=== PATIENT | female | born 1995 | race Caucasian/White ===

== ENCOUNTER 2018-08-02 10:12 | Emergency (ER) | payer OTHER ==
[2018-08-02 10:27] VITALS: BP 101/64
--- NOTE | 2018-08-02 10:43 | UC ---
Eye Complaint HPI - HPI Summary HPI Summary: pt was fine last night before bed, took contacts ou. This am awoke with L eye red, draining white discharge. no sight change - History of Current Complaint Chief Complaint: UCEye Stated Complaint: EYE ISSUE Time Seen by Provider: 08/02/18 10:28 Hx Obtained From: Patient Hx Last Menstrual Period: 08/02/18 ?: No Onset/Duration: Sudden Onset Timing: Constant Severity Initially: Mild Severity Currently: None Pain Intensity: 0 Aggravating Factor(s): Nothing Alleviating Factor(s): Nothing Associated Signs And Symptoms: Positive: Drainage (Purulent), Swelling. Negative: Photophobia, Vision Impairment Left - Risk Factors Penetrating Injury Risk Factor: Negative - Allergies/Home Medications Allergies/Adverse Reactions: Allergies Allergy/AdvReac Type Severity Reaction Status Date / Time No Known Allergies Allergy Verified 08/02/18 10:27 Home Medications: Home Medications Cetirizine* [ZyrTEC 10 MG TAB*] 10 mg PO DAILY 08/02/18 [History Confirmed 08/02] Norethindrone 0.35 mg PO 08/02/18 [History] PMH/Surg Hx/FS Hx/Imm Hx Previously Healthy: Yes Other History Of: Negative For: Anticoagulant Therapy - Surgical History Surgical History: Yes Surgery Procedure, Year, and Place: tendon repair 09/03 - Family History Known Family History: Positive: Cardiac Disease - Social History Occupation: Student Lives: With Family Alcohol Use: Occasionally Substance Use Type: None Smoking Status (MU): Never Smoked Tobacco Review of Systems Constitutional: Negative Skin: Negative Eyes: Drainage, Eye Redness ENT: Negative Respiratory: Negative Cardiovascular: Negative Neurological: Negative Psychological: Negative Is Patient Immunocompromised?: No All Other Systems Reviewed And Are Negative: Yes Physical Exam Triage Information Reviewed: Yes Appearance: Well-Appearing, No Pain Distress, Well-Nourished Vital Signs: Initial Vital Signs Temp 98 F 08/02/18 10:25 Pulse 69 08/02/18 10:25 Resp 16 08/02/18 10:25 BP 101/64 08/02/18 10:25 Pulse Ox 100 08/02/18 10:25 Vital Signs Reviewed: Yes Eyes: Positive: Conjunctiva Inflamed ENT Exam: Normal Respiratory Exam: Normal Respiratory: Positive: Lungs clear Cardiovascular Exam: Normal Cardiovascular: Positive: RRR Psychological Exam: Normal Skin Exam: Normal Skin: Negative: rashes Eye Complaint Course/Dx - Differential Dx/Diagnosis Differential Diagnosis/HQI/PQRI: Conjunctivitis, Corneal Abrasion, Foreign Body Provider Diagnoses: conjunctivitis OS Discharge - Sign-Out/Discharge Documenting (check all that apply): Patient Departure All imaging exams completed and their final reports reviewed: No Studies - Discharge Plan Condition: Good Disposition: HOME Prescriptions: Ciprofloxacin 0.3% OPTH.RAVIN* [Cipro 0.3% Opth*] 2 drop LEFT EYE Q4H #1 btl Patient Education Materials: Conjunctivitis (ED) Referrals: [facility] - [facility] [Primary Care Provider] - 2 Days (If no better) Additional Instructions: Do not wear contact lenses for five days use eye drops as directed - Billing Disposition and Condition Condition: GOOD Disposition: Home
== END 2018-08-02 10:52 | disposition home or self-care (01) ==
LOC: UCEAST 10:12
DX: H10.32 Unspecified acute conjunctivitis, left eye (principal)
CPT/HCPCS: 99212; G0463

== ENCOUNTER 2019-10-21 07:41 | Emergency (ER) | payer OTHER ==
[2019-10-21 07:55] VITALS: BP 112/74
--- NOTE | 2019-10-21 08:17 | UC ---
Skin Complaint HPI - HPI Summary HPI Summary: 24-year-old woman comes in with a chief complaint of a skin infection on her right forehead. About 3 days ago was started as a small bump. She did get some pus out of it. Since then its spread and swollen up. Is tender to palpation. No history of MRSA. She has been some Epsom salts on it without improvement. - History of Current Complaint Chief Complaint: UCSkin Time Seen by Provider: 10/21/19 08:11 Stated Complaint: WOUND ON HEAD Hx Last Menstrual Period: merena Pain Intensity: 6 - Allergy/Home Medications Allergies/Adverse Reactions: Allergies Allergy/AdvReac Type Severity Reaction Status Date / Time No Known Allergies Allergy Verified 10/21/19 07:46 PMH/Surg Hx/FS Hx/Imm Hx Previously Healthy: Yes Other History Of: Negative For: Anticoagulant Therapy - Surgical History Surgical History: Yes Surgery Procedure, Year, and Place: tendon repair 09/03. T&A - Family History Known Family History: Positive: Cardiac Disease - Social History Alcohol Use: Weekly Substance Use Type: None Smoking Status (MU): Never Smoked Tobacco Review of Systems All Other Systems Reviewed And Are Negative: Yes Constitutional: Positive: Negative Skin: Positive: Other - see hpi Eyes: Positive: Negative ENT: Positive: Negative Respiratory: Positive: Negative Cardiovascular: Positive: Negative Gastrointestinal: Positive: Negative Motor: Positive: Negative Neurovascular: Positive: Negative Musculoskeletal: Positive: Negative Neurological: Positive: Negative Psychological: Positive: Negative Is Patient Immunocompromised?: No Physical Exam Triage Information Reviewed: Yes Appearance: Well-Appearing, No Pain Distress, Well-Nourished Vital Signs: Initial Vital Signs Temp 98.1 F 10/21/19 07:47 Pulse 86 10/21/19 07:47 Resp 16 10/21/19 07:47 BP 112/74 10/21/19 07:47 Pulse Ox 100 10/21/19 07:47 Vital Signs Reviewed: Yes Eye Exam: Normal Eyes: Positive: Conjunctiva Clear Neck: Positive: Supple Respiratory: Positive: No respiratory distress Musculoskeletal: Positive: Strength Intact, ROM Intact Neurological: Positive: Alert, Muscle Tone Normal Psychological: Positive: Age Appropriate Behavior Skin: Positive: Other - rt forehead there is an area of infected folliculitis. There is some beltran crusting to it. There is some swelling. The erythematous area is approximately 1 cm in diameter. The swollen area is approximately 2 cm in diameter. Course/Dx - Diagnoses Provider Diagnosis: Folliculitis Discharge ED - Sign-Out/Discharge Documenting (check all that apply): Patient Departure All imaging exams completed and their final reports reviewed: No Studies - Discharge Plan Condition: Stable Disposition: HOME Prescriptions: DOXYcycline CAP(*) [DOXYcycline 100MG CAP(*)] 100 mg PO BID #14 cap Mupirocin 1 applic TOPICAL BID #22 gm Patient Education Materials: Folliculitis (ED) Referrals: [facility] [place] [facility]FERR[facility] [Outside] Additional Instructions: FOLLOW UP WITH YOUR DOCTOR IF NOT COMPLETELY IMPROVED. GET REEVALUATED SOONER IF NOT IMPROVED OR WORSE OR ANY QUESTIONS OR CONCERNS. - Billing Disposition and Condition Condition: STABLE Disposition: Home
== END 2019-10-21 08:23 | disposition home or self-care (01) ==
LOC: UCEAST 07:41
DX: L73.9 Follicular disorder, unspecified (principal)
CPT/HCPCS: 99212; G0463